=== PATIENT | female | born 1990 | race American Indian/Alaskan Native ===

== ENCOUNTER 2020-06-29 16:21 | Emergency (ER) | payer SELFPAY ==
[2020-06-29] MEDS ORDERED: IBUPROFEN 800 MG TAB PO ONE (17:22)
--- NOTE | 2020-06-29 17:25 | Emergency Department Report ---
ED General Adult HPI - General Chief complaint: Extremity Problem,Nontraumatic Stated complaint: ABD PAIN/LT LEG PAIN PUI?: No Source: patient Mode of arrival: Ambulatory Limitations: No Limitations - History of Present Illness Initial comments: 29-year-old -[place] female presents to the emergency room complaining of lower abdominal pain that is been going on for about a month. Patient reports that she has urinary frequency. She also reports that she has mucus in her stool. Patient second complaint is that she has pain in her left anterior ankle that she woke up to and feels like it is going up her leg. Patient does admit that she stands on her feet at work. Patient is taken nothing for her pain. Patient does not recall injuring her ankle. Onset/Timin -: month(s) (Lower abdominal pain and urinary frequency) Location: left, lower extremity Quality: aching Consistency: intermittent - Related Data Allergies Allergy/AdvReac Type Severity Reaction Status Date / Time No Known Allergies Allergy Unverified 06/29/20 16:25 ED Review of Systems ROS: Stated complaint: ABD PAIN/LT LEG PAIN Other details as noted in HPI ED Past Medical Hx - Past Medical History Previous Medical History?: Yes Hx Hypertension: Yes - Surgical History Past Surgical History?: No - Social History Smoking Status: Current Every Day Smoker Substance Use Type: None ED Physical Exam - General Limitations: No Limitations General appearance: alert, in no apparent distress - Head Head exam: Present: atraumatic, normocephalic - Eye Eye exam: Present: normal appearance - ENT ENT exam: Present: mucous membranes moist - Neck Neck exam: Present: normal inspection - GI/Abdominal GI/Abdominal exam: Present: soft. Absent: distended, tenderness, guarding - Expanded Lower Extremity Exam Left Hip exam: Present: full ROM Upper Leg exam: Present: normal inspection Knee exam: Present: normal inspection Lower Leg exam: Present: normal inspection Ankle exam: Present: full ROM, tenderness, swelling Foot/Toe exam: Present: normal inspection, full ROM. Absent: tenderness, s welling Neuro vascular tendon exam: Present: no vascular compromise - Back Exam Back exam: Present: full ROM - Neurological Exam Neurological exam: Present: alert, oriented X3 - Psychiatric Psychiatric exam: Present: normal affect, normal mood - Skin Skin exam: Present: warm, dry, intact, normal color. Absent: rash ED Course Vital Signs 06/29/20 16:26 Temperature 98.7 F Pulse Rate 120 H Respiratory 18 Rate Blood Pressure 146/94 O2 Sat by Pulse 96 Oximetry ED Medical Decision Making - Radiology Data Radiology results: report reviewed [facility] [address] [place] [address] XRay Report Signed Patient: JARVIS OCAMPO MR#: [id number] : 1990 Acct:[id number] Age/Sex: 29 / F ADM Date: 06/29/20 Loc: ED Attending Dr: Ordering Physician: KATHI ARZOLA Date of Service: 06/29/20 Procedure(s): XR ankle 2V LT Accession Number(s): [id number] cc: KATHI ARZOLA Fluoro Time In Minutes: LEFT ANKLE 2 VIEWS INDICATION / CLINICAL INFORMATION: Left ankle pain. COMPARISON: None available. FINDINGS: BONES / JOINT(S): The joint spaces are well-maintained. There is no evidence of fracture, subluxation or destructive lesion. There is a tiny spur at the insertion of the Achilles tendon on the calcaneus. SOFT TISSUES: There is mild generalized soft tissue swelling. ADDITIONAL FINDINGS: None. Signer Name: Anju Mcbride MD Signed: 06/29/2020 5:46 PM Workstation Name: [id number] Transcribed By: RT Dictated By: Anju Mcbride MD Electronically Authenticated By: Anju Mcbride MD Signed Date/Time: 06/29/201745 DD/ 44 TD/TT: - Medical Decision Making 29-year-old -[place] female presents to the emergency room complaining of lower abdominal pain that is been going on for about a month. Patient reports that she has urinary frequency. She also reports that she has mucus in her stool. Patient second complaint is that she has pain in her left anterior ankle that she woke up to and feels like it is going up her leg. Patient does admit that she stands on her feet at work. Patient is taken nothing for her pain. Patient does not recall injuring her ankle. Critical care attestation.: If time is entered above; I have spent that time in minutes in the direct care of this critically ill patient, excluding procedure time. ED Disposition Clinical Impression: Strain of left ankle, Lower abdominal pain, Frequent bowel movements Disposition: DC-01 TO HOME OR SELFCARE Is pt being admited?: No Does the pt Need Aspirin: No Condition: Stable Instructions: Ankle Exercises (GEN) Additional Instructions: X-ray of left ankle is negative for any fractures or dislocations. I recommend wearing a ankle sleeve or Tobias bandage for support. You can take obal-rii-uupjehu ibuprofen or naproxen. Ibuprofen you can take up to 800 mg 3 times a day or naproxen 440 mg twice a day. Referrals: PRIMARY CARE, [Primary Care Provider] - 3-5 Days [facility] [Provider Group] - 3-5 Days ANJU MCCOY MD [Staff Physician] - 3-5 Days [facility] [Provider Group] - 3-5 Days Forms: Work/School Release Form(ED)
--- NOTE | 2020-06-29 17:50 | XRay Report ---
LEFT ANKLE 2 VIEWS INDICATION / CLINICAL INFORMATION: Left ankle pain. COMPARISON: None available. FINDINGS: BONES / JOINT(S): The joint spaces are well-maintained. There is no evidence of fracture, subluxation or destructive lesion. There is a tiny spur at the insertion of the Achilles tendon on the calcaneus . SOFT TISSUES: There is mild generalized soft tissue swelling. ADDITIONAL FINDINGS: None. Signer Name: Pérez Mcbride MD Signed: 06/29/2020 5:46 PM Workstation Name: [id number]
[2020-06-29 19:08] VITALS: BP 159/111
[2020-06-29 19:08] LABS: HCG Qualitative,Urine Negative (Negative)
[2020-06-29 19:11] LABS: Bilirubin,Urine NEG (Negative); Blood,Urine SM (Negative); Color,Urine Yellow (Yellow); Mucus,Urine FEW /HPF; Protein,Urine <15 mg/dL mg/dL (Negative); Urobilinogen,Urine < 2.0 mg/dL (<2.0)
== END 2020-06-29 19:46 | disposition home or self-care (01) ==
LOC: ED 16:21
DX: S96.912A Strain of unspecified muscle and tendon at ankle and foot level, left foot, initial encounter (principal); R19.4 Change in bowel habit; R10.30 Lower abdominal pain, unspecified; F17.200 Nicotine dependence, unspecified, uncomplicated; I10 Essential (primary) hypertension; X58.XXXA Exposure to other specified factors, initial encounter; Y93.89 Activity, other specified; Y92.89 Other specified places as the place of occurrence of the external cause; Y99.8 Other external cause status
CPT/HCPCS: 81001; 81025